=== PATIENT | female | born 1965 | race Caucasian/White ===

== ENCOUNTER 2017-04-22 09:32 | Outpatient (CLI) ==
[2016-08-09 14:07] VITALS: BMI 24.1
[2017-04-22 09:48] LABS: BASOPHILS % (AUTO) 0.4 % (0.0-3.0); EOSINOPHILS # (AUTO) 0.1 K/ul (0.0-0.7); EOSINOPHILS % (AUTO) 0.7 % (0.0-7.0); HEMATOCRIT 46.4 % (37.0-47.0); HEMOGLOBIN 15.3 g/dl (12.0-16.0); IMMATURE GRANULOCYTE % (AUTO) 0.3 % (0.0-5.0); LYMPHOCYTES # (AUTO) 3.5 K/uL (0.60-3.4); LYMPHOCYTES % (AUTO) 30.7 (10.0-50.0); MEAN CORPUSCULAR HEMOGLOBIN 28.1 pg (27.0-31.0); MEAN CORPUSCULAR VOLUME 85.3 fl (81.0-99.0); MONOCYTES # (AUTO) 0.9 K/uL (0.4-2.0); MONOCYTES % (AUTO) 7.6 (0-10); NEUTROPHILS # (AUTO) 6.9 K/ul (2.0-6.9); NEUTROPHILS % (AUTO) 60.3; PLATELET COUNT 374 10^3/uL (140-440); RED BLOOD COUNT 5.44 10^6/ul (4.20-5.40)
[2017-04-22 09:51] LABS: BILIRUBIN,URINE Negative (NEGATIVE); KETONES,URINE Negative (NEGATIVE); LEUKOCYTE ESTERASE ,URINE Negative (NEGATIVE); NITRITE,URINE Negative (NEGATIVE); PROTEIN,URINE Negative (NEGATIVE); URINE, BLOOD Trace-intact (NEGATIVE)
--- NOTE | 2017-04-22 09:51 | DI ---
EXAM: CHEST FRONTAL AND LATERAL VIEWS HISTORY: Fever. COMPARISON: 08/09/2016 FINDINGS: Heart size and mediastinal contour remain within normal limits. No acute infiltrates. Normal vascularity with no pleural fluid or pneumothorax. The bony thorax has no acute finding. IMPRESSION: No acute process.
[2017-04-22 09:54] LABS: ADD URINE MICROSCOPIC YES
[2017-04-22 10:29] LABS: ALBUMIN 3.6 g/dL (3.4-5.0); ALBUMIN/GLOBULIN RATIO 0.95; ANION GAP 15.1; BILIRUBIN,TOTAL 0.21 mg/dL (0.00-1.20); BUN/CREATININE RATIO 13.33; CHOL/HDL RATIO 7.7 (4.5-5.5); CREATININE 0.9 mg/dL (0.60-1.30); POTASSIUM 4.1 mmol/L (3.5-5.10); TOTAL PROTEIN 7.4 g/dL (6.4-8.2)
== END 2017-04-22 09:33 | disposition home or self-care (01) ==
LOC: RAD 09:32
PROVIDERS: ATTEND Nurse Practitioner Family
DX: Z00.00 Encounter for general adult medical examination without abnormal findings (principal); R50.9 Fever, unspecified; R53.83 Other fatigue; Z72.0 Tobacco use
CPT/HCPCS: 36415; 80053; 80061; 81001; 84443; 85025

== ENCOUNTER 2017-05-27 07:41 | Outpatient (CLI) ==
[2016-08-09 14:07] VITALS: BMI 24.1
[2017-05-27 08:43] LABS: ALBUMIN/GLOBULIN RATIO 0.71; ANION GAP 10.7; BILIRUBIN,TOTAL 0.21 mg/dL (0.00-1.20); BUN/CREATININE RATIO 19.31; CALCIUM 9.7 mg/dL (8.2-10.2); CHOL/HDL RATIO 6.4 (4.5-5.5); CREATININE 0.88 mg/dL (0.60-1.30); POTASSIUM 4.7 mmol/L (3.5-5.10); TOTAL PROTEIN 7.2 g/dL (6.4-8.2)
--- NOTE | 2017-05-27 09:46 | MAMMO ---
EXAM: Bilateral digital screening mammogram (2-D and 3-D) History: Baseline screening Findings: MLO and CC views of bilateral breasts demonstrate scattered fibroglandular breast parenchy ma. CAD was reviewed by the radiologist. Tomosynthesis was performed. Benign calcifications are seen within the right breast. There is a 0.8 cm well circumscribed mass within the lower inner quadrant of the left breast middle depth. No suspicious microcalcifications. No architectural distortions Impression: Indeterminate mass within the lower inner quadrant of the left breast. Recommend furthe r evaluation with ultrasound. BIRADS 0
== END 2017-05-27 07:42 | disposition home or self-care (01) ==
LOC: RAD 07:41
PROVIDERS: ATTEND Nurse Practitioner Family
DX: Z12.31 Encounter for screening mammogram for malignant neoplasm of breast (principal); E78.5 Hyperlipidemia, unspecified; R94.6 Abnormal results of thyroid function studies
CPT/HCPCS: 36415; 77067; 80053; 80061; 84443

== ENCOUNTER 2017-06-05 08:43 | Outpatient (CLI) ==
[2016-08-09 14:07] VITALS: BMI 24.1
--- NOTE | 2017-06-05 09:15 | US ---
EXAM: Left breast ultrasound. History: Left breast mass. Comparison: Bilateral mammogram 05/27/2017 Technique: Multiple sonographic images through the left breast were obtained. Color duplex Doppler was used to interrogate vascular flow. Findings: At 9 o'clock 5 cm from nipple there is a well circumscribed mixed echogenic lesion measuri ng 0.7 cm x 0.4 cm x 0.4 cm. This probably correlates with mammography. Impression: Probably benign mixed echogenic lesion within the left breast could represent a cyst clu ster or lymph node. Recommend 6-month follow-up left breast ultrasound and mammogram to determine st ability. BIRADS 3
== END 2017-06-05 08:44 | disposition home or self-care (01) ==
LOC: RAD 08:43
PROVIDERS: ATTEND Nurse Practitioner Family
DX: N63.0 Unspecified lump in unspecified breast (principal)

== ENCOUNTER 2017-09-22 16:20 | Outpatient (CLI) ==
[2016-08-09 14:07] VITALS: BMI 24.1
== END 2017-09-22 16:21 | disposition home or self-care (01) ==
LOC: LAB 16:20
PROVIDERS: ATTEND Nurse Practitioner Family
DX: R05 Cough (principal); R50.9 Fever, unspecified
CPT/HCPCS: 87804

== ENCOUNTER 2018-04-08 12:37 | Outpatient (RCR) ==
[2018-04-08 13:50] VITALS: BP 118/56; TEMP 98.1; BMI 29.7
== END 2018-04-09 23:59 ==
LOC: CAR.REHAB 12:37
PROVIDERS: ATTEND Nurse Practitioner Family
DX: I21.4 Non-ST elevation (NSTEMI) myocardial infarction (principal)

== ENCOUNTER 2018-04-13 06:41 | Outpatient (RCR) ==
[2018-04-20 09:53] VITALS: BP 108/56
== END 2018-05-05 14:33 | disposition home or self-care (01) ==
LOC: CAR.REHAB 06:41
PROVIDERS: ATTEND Nurse Practitioner Family
DX: I21.4 Non-ST elevation (NSTEMI) myocardial infarction (principal)
CPT/HCPCS: 93798

== ENCOUNTER 2018-08-23 08:21 | Outpatient (CLI) | END 2018-08-23 08:22 | disposition home or self-care (01) | LOC: RHC-LAB 08:21 | PROVIDERS: ATTEND Nurse Practitioner Family | DX: R79.89 Other specified abnormal findings of blood chemistry (principal) | CPT/HCPCS: 36415; 84439; 84443; 84481 ==

== ENCOUNTER 2018-09-15 12:49 | Outpatient (CLI) | END 2018-09-15 12:50 | disposition home or self-care (01) | LOC: RHC-LAB 12:49 | PROVIDERS: ATTEND Nurse Practitioner Family | DX: R05 Cough (principal) | CPT/HCPCS: 87502 ==

== ENCOUNTER 2018-09-27 08:11 | Outpatient (CLI) | END 2018-09-27 08:12 | disposition home or self-care (01) | LOC: RHC-LAB 08:11 | PROVIDERS: ATTEND Nurse Practitioner Family | DX: J44.9 Chronic obstructive pulmonary disease, unspecified (principal); E78.5 Hyperlipidemia, unspecified; E03.9 Hypothyroidism, unspecified | CPT/HCPCS: 36415; 84443 ==

== ENCOUNTER 2018-11-16 15:25 | Outpatient (CLI) | END 2018-11-16 15:26 | disposition home or self-care (01) | LOC: CAR 15:25 | PROVIDERS: ATTEND Psychiatry & Neurology Sleep Medicine | DX: G47.33 Obstructive sleep apnea (adult) (pediatric) (principal) | CPT/HCPCS: 95810 ==

== ENCOUNTER 2018-11-24 07:53 | Outpatient (CLI) ==
--- NOTE | 2018-11-24 11:47 | MAMMO ---
EXAM: Digital screening mammogram with tomosynthesis HISTORY: Screening COMPARISON: 05/27/2017 FINDINGS: Digital MLO and CC views of the right and left breast were performed. Tomosynthesis was performed. Computer aided detection utilized. There are scattered fibroglandular densities. Asymme try right breast on the CC view lateral/retroareolar, anterior depth. There is no evidence for new m ass, asymmetry, distortion, or suspicious calcifications in the left breast. IMPRESSION: 1. Asymmetry right breast. Diagnostic mammogram and possible ultrasound recommended. 2. Negative left breast mammogram. BIRADS category 0, needs further evaluatio
== END 2018-11-24 07:54 | disposition home or self-care (01) ==
LOC: RAD 07:53
PROVIDERS: ATTEND Nurse Practitioner Family
DX: Z12.31 Encounter for screening mammogram for malignant neoplasm of breast (principal)

== ENCOUNTER 2018-11-29 10:23 | Outpatient (CLI) ==
--- NOTE | 2018-11-29 12:02 | US ---
EXAM: Digital diagnostic right breast mammogram with tomosynthesis and right breast ultrasound HISTORY: Right breast asymmetry COMPARISON: 11/24/2018 FINDINGS: Mammogram: Digital MLO and CC views of the breast were performed. Tomosynthesis was performed. Co mputer aided detection utilized. There are scattered fibroglandular densities. There is a persisten t asymmetry in the right upper outer quadrant, anterior depth. Ultrasound: Ultrasound right breast was performed in the region of mammographic finding. At the 9 o' clock position and 4 cm from the nipple, is a 0.4 x 0.2 cm probable mildly complicated cyst with mild internal echoes and no internal vascularity. This most likely corresponds with the finding on mammo gram. Adjacent echogenicity measured by the technologist likely represents focal fatty tissue. IMPRESSION: Probably benign findings in the right breast. Follow-up mammogram and ultrasound in 6 months. BIRADS category 3, probably benign
== END 2018-11-29 10:24 | disposition home or self-care (01) ==
LOC: RAD 10:23
PROVIDERS: ATTEND Nurse Practitioner Family
DX: N64.89 Other specified disorders of breast (principal)

== ENCOUNTER 2018-12-21 07:47 | Outpatient (CLI) | END 2018-12-21 07:48 | disposition home or self-care (01) | LOC: RHC-LAB 07:47 | PROVIDERS: ATTEND Nurse Practitioner Family | DX: J44.9 Chronic obstructive pulmonary disease, unspecified (principal); E78.5 Hyperlipidemia, unspecified; E03.9 Hypothyroidism, unspecified | CPT/HCPCS: 36415; 80053; 80061; 84443; 85025 ==

== ENCOUNTER 2019-01-18 08:17 | Outpatient (CLI) | END 2019-01-18 08:18 | disposition home or self-care (01) | LOC: RHC-LAB 08:17 | PROVIDERS: ATTEND Nurse Practitioner Family | DX: J44.9 Chronic obstructive pulmonary disease, unspecified (principal); E78.5 Hyperlipidemia, unspecified; E03.9 Hypothyroidism, unspecified; R79.89 Other specified abnormal findings of blood chemistry | CPT/HCPCS: 36415; 80053; 80061; 84443; 85025 ==

== ENCOUNTER 2019-02-01 12:48 | Outpatient (CLI) | END 2019-02-01 12:49 | disposition home or self-care (01) | LOC: CAR 12:48 | PROVIDERS: ATTEND Psychiatry & Neurology Sleep Medicine | DX: G47.33 Obstructive sleep apnea (adult) (pediatric) (principal) ==

== ENCOUNTER 2022-02-13 14:44 | Observation (INO) ==
[2022-02-13] MEDS ORDERED: LACTATED RINGERS 1,000 ML IV STA (15:39)
[2022-02-13] MEDS ORDERED: ZOFRAN 4 MG/2 ML IVP ONE (15:39)
[2022-02-13] MEDS ORDERED: TYLENOL PO STA (15:39)
[2022-02-13] MEDS ORDERED: ZOSYN 3.375 GM 3.375 GM in SODIUM CHLORIDE 50 ML IV ONE (15:42)
--- NOTE | 2022-02-13 15:45 | ED.PDOC ---
General ED Provider: Dr. MARY VAZQUEZ MD Chief Complaint: Nausea/Vomiting Stated Complaint: mild to mod off and on NV and fever since Thursday, hx recent uti, diffuse nonrad abdominal cramps, no rash, hx no covid vaccine and htn, no dm Time Seen by Provider: 02/13/22 14:48 Mode of Arrival: Walk-In Information Source: Patient Primary Care Provider: MARCELA LOPEZ MD Nursing and Triage Documentation Reviewed and Agree: Yes Does patient meet sepsis criteria?: Yes If yes, has appropriate treatment been initiated?: Yes System Inflammatory Response Syndrome: Temp 101F or Greater and Pulse >90 BPM Sepsis Protocol: For patient's 13 years and over: Temp is 96.8 and below OR 101 and greater Pulse >90 BPM Resp >20/minute Acutely Altered Mental Status Are patient's symptoms suggestive of a new infection, such as: -Pneumonia -Skin, Soft Tissue -Endocarditis -UTI -Bone, Joint Infection -Implantable Device -Acute Abdominal Infection -Wound Infection -Meningitis -Blood Stream Catheter Infection -Unknown Review of Systems Review Of Systems Constitutional: Reports Fever and Malaise Eyes: Denies Vision change Ears, Nose, Mouth, Throat: Denies Throat pain Respiratory: Denies Short of air Cardiac: Denies Chest pain GI: Reports Abdominal pain and Vomiting : Reports Frequency Musculoskeletal: Denies Neck pain Skin: Denies Rash Neurological: Denies Cognitive dysfunction Endocrine: Reports Other All Other Systems: Other PFSH Medical History Breast asymmetry Cough Exposure to COVID-19 virus Foot pain, bilateral Gingival hypertrophy Hypertension Jaw pain Nerve damage of left foot Nerve damage of right foot Neuropathy of both feet PATY on CPAP Tobacco use Family History Mother Diabetic acidosis FATHER Alzheimer's dementia Heart problem Other Hypertension Social History Smoking and tobacco status: Current every day smoker Tobacco: How many years used: 40 Quit status: considering quitting Second hand smoke exposure: Yes Alcohol intake: current Substance use type: marijuana Counseling given: No Wendy/uatsdin: NONE Special wendy needs: No Agree to transfusion: Yes Adopted: No Household members: family Housing: house Lives independently: Yes Highest education level completed: high school graduate Financial difficulty paying for basics: not applicable service: No Current occupational status: employed Current occupation: retail Current occupational exposures/hazards: Yes Pets and animals: Yes Leisure activites: reading History of recent travel: No Sexually active: No Do you think of yourself as: straight/heterosexual Current gender identity: female Seatbelt use: always Helmet use: No Drives intoxicated or rides with intoxicated fork truck driver: No Water heater temperature set < 120 degrees: Yes Working smoke detector in home: Yes Fire extinguisher in home: Yes Carbon monoxide detector in home: Yes Firearms in home: No Surgical History cyst H/O tooth extraction heart stent Status post appendectomy Status post hysterectomy tumor removed Female Reproductive History Menstrual Hx Hysterectomy: Yes Hx Tubal Ligation: No Physical Exam Physical Exam Appearance: Reports Ill-appearing Ill-appearing: Mild Pain Distress: Mild Eyes: Reports AMBER, EOMI and Conjunctiva clear ENT: Reports Oropharynx normal Neck: Supple Respiratory: Reports Airway patent, Breath sounds clear and Breath sounds equal Cardiovascular: Reports Tachycardia GI/: Reports Soft and Tender (no rebound) Musculoskeletal: Reports ROM intact Skin: Reports Warm and Dry Neurological: Reports Alert and Oriented Psychiatric: Reports Affect appropriate Interpretation Radiology Interpretation Radiology Interpretation By: Radiologist Radiology Results: No acute changes Exam Interpreted: CXR Radiology Interpretation By: Radiologist Exam Interpreted: CT Scan Xray Comments: probable pyelonephritis Critical Care Note Critical Care Note Total Critical Care Time (mins): 30 Course Course Hematology/Chemistry: 02/13/22 15:55 02/13/22 15:55 Orders, Labs, Meds: Lab Review 02/13/22 02/13/22 02/13/22 15:47 15:55 15:55 WBC 16.10 H RBC 5.07 Hgb 14.8 Hct 43.5 MCV 85.8 MCH 29.2 MCHC 34.0 RDW Coeff of Sylvie 13.6 Plt Count 221 Immature Gran % (Auto) 0.4 Neut % (Auto) 89.1 H Lymph % (Auto) 4.9 L [place] % (Auto) 5.5 Eos % (Auto) 0.0 Baso % (Auto) 0.1 Neut # (Auto) 14.4 H Lymph # (Auto) 0.8 [place] # (Auto) 0.9 Eos # (Auto) 0.0 Baso # (Auto) 0.0 Immature Gran # (Auto) 0.1 Sodium 138.0 Potassium 3.76 Chloride 103.4 Carbon Dioxide 21.6 L Anion Gap 16.76 BUN 18.6 H Creatinine 1.00 Estimated GFR (MDRD) 58.00 BUN/Creatinine Ratio 18.60 Glucose 116.4 H Lactic Acid Calcium 9.26 Total Bilirubin 1.01 AST 22.9 ALT 15.1 Alkaline Phosphatase 122.9 Total Protein 8.03 Albumin 4.17 Globulin 3.86 Albumin/Globulin Ratio 1.08 Procalcitonin Urine Color Urine Clarity Urine pH Ur Specific [place] Urine Protein Urine Glucose (UA) Urine Ketones Urine Blood Urine Nitrite Urine Bilirubin Urine Urobilinogen Ur Leukocyte Esterase Urine Microscopic RBC Urine Microscopic WBC Ur Squamous Epith Cells Urine Bacteria Urine Mucus SARS-CoV-2 Ag (Rapid) Negative 02/13/22 02/13/22 02/13/22 15:55 15:55 17:09 WBC RBC Hgb Hct MCV MCH MCHC RDW Coeff of Sylvie Plt Count Immature Gran % (Auto) Neut % (Auto) Lymph % (Auto) [place] % (Auto) Eos % (Auto) Baso % (Auto) Neut # (Auto) Lymph # (Auto) [place] # (Auto) Eos # (Auto) Baso # (Auto) Immature Gran # (Auto) Sodium Potassium Chloride Carbon Dioxide Anion Gap BUN Creatinine Estimated GFR (MDRD) BUN/Creatinine Ratio Glucose Lactic Acid 0.94 Calcium Total Bilirubin AST ALT Alkaline Phosphatase Total Protein Albumin Globulin Albumin/Globulin Ratio Procalcitonin 1.05 H Urine Color Dark Urine Clarity Slightly Urine pH 6.0 Ur Specific [place] 1.020 Urine Protein 2+ H Urine Glucose (UA) Negative Urine Ketones 2+ H Urine Blood 3+ H Urine Nitrite Negative Urine Bilirubin 1+ H Urine Urobilinogen 1.0 H Ur Leukocyte Esterase 1+ H Urine Microscopic RBC 30-50 Urine Microscopic WBC 20-30 Ur Squamous Epith Cells 5-10 Urine Bacteria 1+ Urine Mucus 2+ SARS-CoV-2 Ag (Rapid) Orders Category Date Time Status ED APPLY O2 .ONCE EMERGENCY 02/13/22 15:39 Active ED TRANSITION MGR APPLIED .ONCE EMERGENCY 02/13/22 15:39 Active ED VITAL SIGNS Q1HR EMERGENCY 02/13/22 15:39 Active BLOOD CULTURE Stat LAB 02/13/22 16:18 Received CBC W/ AUTO DIFF Stat LAB 02/13/22 15:55 Completed COMPREHENSIVE METABOLIC PANEL Stat LAB 02/13/22 15:55 Completed COVID-19 ANTIGEN TEST Stat LAB 02/13/22 15:47 Completed LACTIC ACID Stat LAB 02/13/22 15:55 Completed PROCALCITONIN Stat LAB 02/13/22 15:55 Completed URINALYSIS C & S IF INDICATED Stat LAB 02/13/22 17:09 Completed URINE CULTURE Stat LAB 02/13/22 17:09 Received Acetaminophen [Tylenol] MEDS 02/13/22 15:39 Discontinued 650 mg PO ONCE STA Ondansetron HCl/Pf [Zofran 4 mg/2 ml] MEDS 02/13/22 15:39 Discontinued 4 mg IVP ONCE ONE Piperacillin Sodium/Tazobactam [Zosyn 3.375 gm] 3.375 MEDS 02/13/22 15:42 Discontinued gm 0.9 % Sodium Chloride [Sodium Chloride] 50 ml IV ONCE Ringers Lactated Solution [Lactated Ringers] 1,000 ml MEDS 02/13/22 15:39 Discontinued IV BOLUS CHEST, 1V AP ONLY Stat RADS 02/13/22 15:[address] ABDOMEN/PELVIS WO CONTRAST Stat RADS 02/13/22 15:39 Completed Medications Discontinued Medications Generic Name Dose Route Start Last Admin Trade Name Freq PRN Reason Stop Dose Admin Acetaminophen 650 mg 02/13/22 15:39 02/13/22 16:12 Acetaminophen 325 Mg Tablet PO 02/13/22 15:40 650 mg ONCE STA Administration Lactated Ringer's 1,000 mls @ 1,000 mls/hr 02/13/22 15:39 02/13/22 16:14 Lactated Ringers IV 02/13/22 16:38 1,000 mls/hr BOLUS STA Administration Piperacillin Sod/Tazobactam 50 mls @ 50 mls/hr 02/13/22 15:42 02/13/22 16:30 Sod 3.375 gm/ Sodium Chloride IV 02/13/22 16:41 50 mls/hr ONCE ONE Administration Ondansetron HCl 4 mg 02/13/22 15:39 02/13/22 16:12 Ondansetron Hcl/Pf 4 Mg/2 Ml Sdv IVP 02/13/22 15:40 4 mg ONCE ONE Administration Vital Signs: Temp Pulse Resp BP Pulse Ox 02/13/22 15:39 100.1 F H 90 16 129/79 99 02/13/22 15:13 101.1 F H 111 H 16 138/81 95 Discharge Plan Discharge Patient Disposition: ADMITTED INPATIENT Discharge Problem: Pyelonephritis Prescriptions: No Action loratadine [Alavert] 10 MG tablet,disintegrating 10 mg PO 0RF acetaminophen 325 MG capsule 325 mg PO 0RF cyanocobalamin (vitamin B-12) [Vitamin B-12] 1,000 MCG tablet 1,000 mcg PO 0RF nitroglycerin 0.4 MG tablet, sublingual 0.4 mg PO ONCE 0RF aspirin [Aspirin Low-Strength] 81 MG tablet,chewable 81 mg PO ONCE 0RF albuterol sulfate [Ventolin HFA] 18 GM HFA aerosol inhaler 18 g inhalation 0RF atorvastatin 80 mg tablet See Rx Instructions .ROUTE .COMPLEX Qty: 90 0RF Dose Instruction: TAKE 1 TABLET BY MOUTH EVERY DAY Rx Instructions: TAKE 1 TABLET BY MOUTH EVERY DAY lisinopril 10 mg tablet 10 mg PO QDAY Qty: 90 1RF venlafaxine 37.5 mg capsule,extended release 24hr See Rx Instructions .ROUTE .COMPLEX Qty: 90 0RF Dose Instruction: TAKE 1 CAPSULE BY MOUTH DAILY Rx Instructions: TAKE 1 CAPSULE BY MOUTH DAILY levothyroxine 88 mcg capsule 88 mcg PO QDAY Qty: 90 1RF metoprolol succinate 25 mg tablet extended release 24 hr 25 mg PO QDAY Qty: 30 2RF omeprazole 20 mg capsule,delayed release(DR/EC) 20 mg PO DAILY Qty: 20 0RF gabapentin 600 mg tablet 600 mg PO TID 0RF baclofen 10 mg tablet 10 mg PO BID PRN (Reason: pain) Qty: 14 0RF Ozempic 0.25 mg or 0.5 mg(2 mg/1.5 mL) pen injector 0.25 mg subcut QWEEK Qty: 1.5 0RF Rx Instructions: for 4 doses cholecalciferol (vitamin D3) 1,250 mcg (50,000 unit) capsule 1,250 mcg PO .every other week Qty: 5 1RF solifenacin 10 mg tablet 10 mg PO QDAY Qty: 90 1RF amoxicillin-pot clavulanate 875-125 mg tablet 1 tab PO BID 10 Days Qty: 20 0RF Did you review [place] HELPER/DRIVER?: Not Applicable ED Provider: MARY VAZQUEZ Condition: Stable Physician Progress Note: []pt improved, full admit to [facility] for iv antibiotics, tisuue perfusion reassessment cap refill less than 2 sec, pt alert and oriented
[2022-02-13 16:09] LABS: BASOPHILS % (AUTO) 0.1 % (0.0-3.0); HEMATOCRIT 43.5 % (37.0-47.0); HEMOGLOBIN 14.8 g/dl (12.0-16.0); IMMATURE GRANULOCYTE # (AUTO) 0.1 (0.0-1.0); IMMATURE GRANULOCYTE % (AUTO) 0.4 % (0.0-5.0); LYMPHOCYTES # (AUTO) 0.8 K/uL (0.60-3.4); LYMPHOCYTES % (AUTO) 4.9 (10.0-50.0); MEAN CORPUSCULAR HEMOGLOBIN 29.2 pg (27.0-31.0); MEAN CORPUSCULAR VOLUME 85.8 fl (81.0-99.0); MONOCYTES # (AUTO) 0.9 K/uL (0.4-2.0); MONOCYTES % (AUTO) 5.5 (0-10); NEUTROPHILS # (AUTO) 14.4 K/ul (2.0-6.9); NEUTROPHILS % (AUTO) 89.1 % (42.2-75.2); PLATELET COUNT 221 10^3/uL (140-440); RDW COEFFICIENT OF VARIATION 13.6 % (11.6-14.8); RED BLOOD COUNT 5.07 10^6/ul (4.20-5.40)
[2022-02-13 16:22] LABS: ALANINE AMINOTRANSFERASE 15.1 U/L (0-35); ALBUMIN 4.17 g/dL (3.5-5.0); ALKALINE PHOSPHATASE 122.9 U/L (38-126); ASPARTATE AMINO TRANSFERASE 22.9 U/L (14-36); BILIRUBIN,TOTAL 1.01 mg/dL (0.2-1.3); BLOOD UREA NITROGEN 18.6 mg/dL (7-17); CALCIUM 9.26 mg/dL (8.4-10.2); CARBON DIOXIDE 21.6 mmol/L (22-30.0); CHLORIDE 103.4 mmol/L (98-107); GLUCOSE 116.4 mg/dL (74-106); POTASSIUM 3.76 mmol/L (3.5-5.1); TOTAL PROTEIN 8.03 g/dL (6.3-8.2)
--- NOTE | 2022-02-13 16:48 | DI ---
EXAM: Single AP view of the chest HISTORY: Fever. COMPARISON: Chest x-ray 04/22/2070 FINDINGS: The cardiomediastinal silhouette is unremarkable. There is no pneumothorax or effusion. T here is no consolidation, nodule or mass. The osseous structures are unremarkable. IMPRESSION: No acute cardiopulmonary process
--- NOTE | 2022-02-13 17:02 | CT ---
EXAM: CT ABDOMEN AND PELVIS HISTORY: Nausea and vomiting, abdominal pain TECHNIQUE: CT abdomen and pelvis without intravenous contrast. Images were reconstructed using 3 mm section thickness. Reformations were prepared. COMPARISON: None FINDINGS: Diagnostic limitations exist without including intravenous contrast enhanced images. Liver and splee n are within normal limits. Gallbladder and pancreas appear normal. Mild broadening of the left adr enal leaves. The right kidney has mild prominence of the collecting system and there is mild perinep hric fat stranding. There is no ureteral calculus. The left kidney is mildly atrophic and has corti moni lobulations suggesting scarring as well as a few punctate calcifications. No left hydronephrosis or ureteral calculus. Urinary bladder is unremarkable. There is mild to moderate atherosclerotic d isease. Stomach is unremarkable. No appendix is seen. Normal bowel gas pattern. No uterus is pres ent. There is no ascites. No abdominal wall hernia. The bones are unremarkable. Lung bases are cl ear no pneumoperitoneum. IMPRESSION: 1. The right kidney has mild prominence of the collecting system and there is mild perinephric fat s tranding. This appearance can be consistent with recent passage of a calculus versus renal parenchym al or collecting system infection/inflammation. Correlate clinically. 2. The left kidney is mildly atrophic and has cortical lobulations suggesting scarring. 3. Mild to moderate atherosclerotic disease. 4. The appearance of the bowel and stomach are normal. No ascites or free air. - - - - - All CT scans are performed using dose optimization techniques as appropriate to the performed exam an d include at least one of the following: Automated exposure control, adjustment of the mA and/or kV according t o size, and the use of iterative reconstruction technique.
[2022-02-13 17:18] LABS: BILIRUBIN,URINE 1+ (NEGATIVE); CLARITY,URINE Slightly (CLEAR); COLOR,URINE Dark (YELLOW); GLUCOSE, URINE (UA) Negative (NEGATIVE); KETONES,URINE 2+ (NEGATIVE); LEUKOCYTE ESTERASE ,URINE 1+ (NEGATIVE); NITRITE,URINE Negative (NEGATIVE); PROTEIN,URINE 2+ (NEGATIVE); URINE, BLOOD 3+ (NEGATIVE)
[2022-02-13 17:29] LABS: URINE RBC, MICROSCOPIC 30-50 (0-2); URINE WBC, MICROSCOPIC 20-30 (0-2)
[2022-02-13 17:30] LABS: BACTERIA,URINE 1+ (NOT PRESENT); MUCUS,URINE 2+ (NOT PRESENT)
[2022-02-13] MEDS ORDERED: TYLENOL PO PRN (17:37)
[2022-02-13] MEDS ORDERED: BACLOFEN PO PRN (17:43)
[2022-02-13] MEDS ORDERED: TOPROL XL PO SCH (18:00)
[2022-02-13] MEDS ORDERED: ZESTRIL PO SCH (18:00)
[2022-02-13] MEDS ORDERED: ZOSYN 3.375 GM 3.375 GM in SODIUM CHLORIDE 100ML 100 ML IV SCH (18:00)
[2022-02-13] MEDS: SODIUM CHLORIDE 1,000 ML IV SCH (18:01)
[2022-02-13 19:14] VITALS: BMI 30.1
[2022-02-13] MEDS ORDERED: MORPHINE 4 MG/ML SYRINGE IVP PRN (19:39)
[2022-02-13] MEDS: ZOFRAN 4 MG/2 ML IVP PRN (19:59)
[2022-02-13] MEDS: TOPROL XL PO SCH (20:00)
[2022-02-13] MEDS: NEURONTIN PO SCH (20:00)
[2022-02-13] MEDS: ZESTRIL PO SCH (20:00)
[2022-02-13] MEDS: ZOSYN 3.375 GM 3.375 GM in SODIUM CHLORIDE 100ML 100 ML IV SCH ×2 (22:28→23:57)
[2022-02-14 05:37] LABS: BASOPHILS % (AUTO) 0.2 % (0.0-3.0); HEMATOCRIT 40.8 % (37.0-47.0); HEMOGLOBIN 13.2 g/dl (12.0-16.0); IMMATURE GRANULOCYTE % (AUTO) 0.3 % (0.0-5.0); LYMPHOCYTES # (AUTO) 1.1 K/uL (0.60-3.4); LYMPHOCYTES % (AUTO) 10.5 (10.0-50.0); MEAN CORPUSCULAR HEMOGLOBIN 28.7 pg (27.0-31.0); MEAN CORPUSCULAR HGB CONC 32.4 (31.8-35.4); MEAN CORPUSCULAR VOLUME 88.7 fl (81.0-99.0); MONOCYTES # (AUTO) 0.6 K/uL (0.4-2.0); MONOCYTES % (AUTO) 5.8 (0-10); NEUTROPHILS # (AUTO) 8.5 K/ul (2.0-6.9); NEUTROPHILS % (AUTO) 83.2 % (42.2-75.2); PLATELET COUNT 188 10^3/uL (140-440); RDW COEFFICIENT OF VARIATION 13.6 % (11.6-14.8); WHITE BLOOD COUNT 10.24 K/ul (4.6-10.2)
[2022-02-14] MEDS: ZOSYN 3.375 GM 3.375 GM in SODIUM CHLORIDE 100ML 100 ML IV SCH (05:47)
[2022-02-14 05:51] LABS: ALANINE AMINOTRANSFERASE 14.3 U/L (0-35); ALBUMIN 3.7 g/dL (3.5-5.0); ALKALINE PHOSPHATASE 96.5 U/L (38-126); ASPARTATE AMINO TRANSFERASE 21.9 U/L (14-36); BILIRUBIN,TOTAL 0.75 mg/dL (0.2-1.3); CALCIUM 8.88 mg/dL (8.4-10.2); CARBON DIOXIDE 26.3 mmol/L (22-30.0); CHLORIDE 103.8 mmol/L (98-107); CREATININE 1.25 mg/dL (0.60-1.30); GLUCOSE 94.6 mg/dL (74-106); POTASSIUM 3.61 mmol/L (3.5-5.1); SODIUM 140.6 mmol/L (134.5-145); TOTAL PROTEIN 7.18 g/dL (6.3-8.2)
[2022-02-14] MEDS: ZESTRIL PO SCH (08:44)
[2022-02-14] MEDS: PRILOSEC PO SCH (08:44)
[2022-02-14] MEDS: TOPROL XL PO SCH (08:44)
[2022-02-14] MEDS: NEURONTIN PO SCH ×3 (08:44→20:49)
[2022-02-14] MEDS: SODIUM CHLORIDE 1,000 ML IV SCH ×2 (09:37→21:04)
[2022-02-14] MEDS: ZOSYN 3.375 GM 3.375 GM in SODIUM CHLORIDE 50 ML IV SCH ×3 (12:42→23:45)
[2022-02-14] MEDS: NICODERM 14 MG TD SCH (20:49)
[2022-02-14 21:55] VITALS: TEMP 98.8
--- NOTE | 2022-02-14 22:37 | PCM.PROG ---
Date Seen by Provider: 02/14/22 Time Seen by Provider: 09:00 Subjective: Feels better. Less nausea. Able to eat and drink. No pain. Would like to stay in hospital one more day. Objective: Vitals: T=98.8 F, P=75, R=20, RR=466/89, SPO2=98 HEENT: []wnl Neck: [supple] Lungs: [clear] CVS: [rrr] Abdomen: [soft] Extremities: [intact] Neurological: [intact] Skin: [intact] Lab/Tests/Diagnostic Imaging: Urine culture report done - see.[] (1) Pyelonephritis: Status: Acute Code(s): N12 - Tubulo-interstitial nephritis, not specified as acute or chronic SNOMED Code(s): 54742538 Assessment: Clinically improved. Urine culture pending. On zosyn. Plan: Continue zosyn pending final culture report. Likely d/c tomorrow.
[2022-02-14] MEDS: ZOFRAN 4 MG/2 ML IVP PRN (23:52)
[2022-02-15 05:24] LABS: BASOPHILS % (AUTO) 0.3 % (0.0-3.0); EOSINOPHILS % (AUTO) 0.6 % (0.0-7.0); HEMATOCRIT 39.1 % (37.0-47.0); IMMATURE GRANULOCYTE % (AUTO) 0.3 % (0.0-5.0); LYMPHOCYTES # (AUTO) 1.6 K/uL (0.60-3.4); LYMPHOCYTES % (AUTO) 24.3 (10.0-50.0); MEAN CORPUSCULAR HGB CONC 33.2 (31.8-35.4); MEAN CORPUSCULAR VOLUME 87.3 fl (81.0-99.0); MONOCYTES # (AUTO) 0.8 K/uL (0.4-2.0); MONOCYTES % (AUTO) 11.4 (0-10); NEUTROPHILS # (AUTO) 4.2 K/ul (2.0-6.9); NEUTROPHILS % (AUTO) 63.1 % (42.2-75.2); PLATELET COUNT 177 10^3/uL (140-440); RDW COEFFICIENT OF VARIATION 13.5 % (11.6-14.8); RED BLOOD COUNT 4.48 10^6/ul (4.20-5.40); WHITE BLOOD COUNT 6.58 K/ul (4.6-10.2)
[2022-02-15 05:35] LABS: ALBUMIN 3.24 g/dL (3.5-5.0); ALKALINE PHOSPHATASE 88.2 U/L (38-126); ASPARTATE AMINO TRANSFERASE 45.1 U/L (14-36); BILIRUBIN,TOTAL 0.42 mg/dL (0.2-1.3); BLOOD UREA NITROGEN 13.6 mg/dL (7-17); CALCIUM 8.56 mg/dL (8.4-10.2); CARBON DIOXIDE 26.5 mmol/L (22-30.0); CREATININE 1.06 mg/dL (0.60-1.30); GLUCOSE 107.5 mg/dL (74-106); POTASSIUM 3.75 mmol/L (3.5-5.1); SODIUM 140.7 mmol/L (134.5-145); TOTAL PROTEIN 6.54 g/dL (6.3-8.2)
[2022-02-15] MEDS: PRILOSEC PO SCH (05:44)
[2022-02-15] MEDS: ZOSYN 3.375 GM 3.375 GM in SODIUM CHLORIDE 50 ML IV SCH (05:44)
[2022-02-15 05:55] VITALS: BP 157/80
[2022-02-15] MEDS ORDERED: SYNTHROID PO SCH (06:30)
[2022-02-15] MEDS: ZESTRIL PO SCH (09:02)
[2022-02-15] MEDS: NEURONTIN PO SCH (09:03)
[2022-02-15] MEDS: TOPROL XL PO SCH (09:03)
--- NOTE | 2022-02-15 09:15 | PCM.PROG ---
Date Seen by Provider: 02/15/22 Time Seen by Provider: 09:11 Subjective: Patient feeling well. No complaints. Tolerating diet. Asking to go home. Objective: Vitals: T=98.8 F, P=67, R=20, DA=963/80, SPO2=99 Patient has remained afebrile for the past 24 hours. She appears well. HEENT: []Oral mucosa moist. Neck: [] Lungs: [] Clear and BS equal. CVS: [] Abdomen: []Soft, nontender. No CVA tenderness. Extremities: [] Neurological: [] Skin: [] Lab/Tests/Diagnostic Imaging: [] (1) Pyelonephritis: Status: Acute Code(s): N12 - Tubulo-interstitial nephritis, not specified as acute or chronic SNOMED Code(s): 78372919 Assessment: Pyelonephritis resolving. Plan: Patient to discharged to home. Her urine and blood cultures were negative. Will have her complete her prior augmentin prescription.
--- NOTE | 2022-02-15 09:21 | PCM.DC ---
Final Diagnosis: Acute pyelonephritis Physical Exam Appearance: Well-appearing Ill-appearing: None Pain Distress: None Eyes: AMBER and EOMI ENT: Nose normal and Oropharynx normal Neck: Supple Respiratory: Airway patent, Breath sounds clear and Breath sounds equal Cardiovascular: RRR, No rub and No murmur GI/: Soft, Nontender, No masses, Bowel sounds normal and Other (no CVA tenderness) Musculoskeletal: Normal strength and No edema Skin: Warm, Dry and Normal color Neurological: Sensation intact, Motor intact, Alert and Oriented Psychiatric: Affect appropriate and Mood appropriate (1) Pyelonephritis: Status: Acute Code(s): N12 - Tubulo-interstitial nephritis, not specified as acute or chronic SNOMED Code(s): 05171878 Reason for Hospitalization: Patient admitted for IV antibiotic therapy for acute pyelonephritis that failed outpatient PO antibiotic therapy. Prognosis/Condition at Discharge: Condition at [facility] was good. Medications at Discharge: Ambulatory Orders Medication Instructions Recorded loratadine 10 mg disintegrating 10 mg PO DAILY 04/22/17 tablet (Alavert) acetaminophen 325 mg capsule 325 mg PO Q6HR PRN 03/30/18 aspirin 81 mg chewable tablet 81 mg PO ONCE 03/30/18 (Aspirin Low-Strength) cyanocobalamin (vitamin B-12) 1,000 mcg PO DAILY 03/30/18 1,000 mcg tablet (Vitamin B-12) nitroglycerin 0.4 mg sublingual 0.4 mg PO ONCE 03/30/18 tablet albuterol sulfate 90 mcg/actuation 18 g INHALATION Q6HR PRN 12/24/18 aerosol inhaler (Ventolin HFA) gabapentin 600 mg tablet 600 mg PO TID 01/24/20 omeprazole 20 mg capsule,delayed 20 mg PO DAILY #20 cap 02/01/21 release baclofen 10 mg tablet 10 mg PO BID PRN #14 tab 02/04/21 atorvastatin 80 mg tablet See Rx Instructions .ROUTE 09/25/21 .COMPLEX #90 tab lisinopril 10 mg tablet 10 mg PO QDAY #90 tab 09/25/21 venlafaxine 37.5 mg See Rx Instructions .ROUTE 09/25/21 capsule,extended release 24 hr .COMPLEX #90 cap levothyroxine 88 mcg capsule 88 mcg PO QDAY #90 cap 10/10/21 metoprolol succinate 25 mg 25 mg PO QDAY #30 tab 10/14/21 tablet,extended release 24 hr solifenacin 10 mg tablet 10 mg PO QDAY #90 tab 11/04/21 cholecalciferol (vitamin D3) 1,250 1,250 mcg PO .every other week #5 01/21/22 mcg (50,000 unit) capsule cap semaglutide (Ozempic) 0.25 mg (0.2 mL) SUBCUT QWEEK #1.5 01/21/22 ml amoxicillin 875 mg-potassium 1 tab PO BID 10 Days #20 tab 02/12/22 clavulanate 125 mg tablet Lab/Diagnostics: Blood and urine cultures negative for growth at discharge. Education Provided to Patient and Family: Pyelonephritis, urinary tract infection Follow-ups: Follow up with primary care physician within one week. Discharge Disposition: Home Hospital Course: Patient responded well to IV Zosyn. She was afebrile for 24 hours prior to admission. Patient tolerated oral intake and had no complaints at the time of discharge. Plan: Patient to be discharged to home. She is to complete her previously prescribed augmentin. Follow up with your primary care provider within one week.
[2022-02-15] MEDS: NICODERM 14 MG TD SCH (09:56)
== END 2022-02-15 11:45 | disposition home or self-care (01) ==
LOC: ED 14:44 → INTOOBSV 17:44 → MEDSURG A 17:44
PROVIDERS: ADMIT Emergency Medicine Emergency Medical Services; ATTEND Surgery
DX: N12 Tubulo-interstitial nephritis, not specified as acute or chronic; Z28.310 Unvaccinated for COVID-19; Z20.822 Contact with and (suspected) exposure to COVID-19; B96.20 Unspecified Escherichia coli [E. coli] as the cause of diseases classified elsewhere; Z79.82 Long term (current) use of aspirin; Z79.899 Other long term (current) drug therapy; N10 Acute pyelonephritis; Z51.81 Encounter for therapeutic drug level monitoring